=== PATIENT | male | born 1965 | race Caucasian/White ===

== ENCOUNTER 2021-08-01 14:54 | Emergency (ER) | payer MEDICAID ==
[~2021-08-01] VITALS: Ht 190.5 cm; Wt 95.3 kg
--- NOTE | 2021-08-01 16:24 | NUR ---
PT BIBSELF FROM WORK C/O L INDEX FINGER LACERATION 1 HOUR AGO W A HAND SAW. STS UTD W TETANUS SHOT. MINIMAL BLEEDING NOTED. PT DENIES PAIN AT THIS TIME. PT A/OX4. NO S/SX OF INFECTION NOTED.
[2021-08-01] MEDS ORDERED: LIDOCAINE HCL/PF 1% 30 ML VIAL TP ONE (16:30)
--- NOTE | 2021-08-01 18:21 | NUR ---
WOUND TREATMENT DONE TO L INDEX FINGER; JIM BOND ANALYST AT PT'S BEDSIDE
[2021-08-01] MEDS ORDERED: SULF1TAB48 PO (18:36)
--- NOTE | 2021-08-01 19:02 | NUR ---
Patient discharged to home in stable condition. RX Written and verbal after care instructions given. Patient verbalizes understanding of instruction. PT ambulatory with a steady gait.
[2021-08-01 19:03] VITALS: BP 139/87
== END 2021-08-01 19:04 | disposition home or self-care (01) ==
LOC: ER 15:05
DX: S61.211A Laceration without foreign body of left index finger without damage to nail, initial encounter (principal); W31.2XXA Contact with powered woodworking and forming machines, initial encounter; Y93.89 Activity, other specified; Y92.89 Other specified places as the place of occurrence of the external cause; Y99.8 Other external cause status
CPT/HCPCS: 12002; 73130; 99283; J3490